=== PATIENT | female | born 1980 | race Caucasian/White ===

== ENCOUNTER 2019-08-14 13:25 | Outpatient (CLI) | payer OTHER, SELFPAY ==
--- NOTE | ~2019-08-14 | MMUS_ITS ---
EXAMINATION: MM diagnostic debi BI w saira, US breast LT limited HISTORY: Left breast lump TECHNIQUE: ML, MLO and craniocaudal 3-D tomosynthesis images of both breasts were performed and [facility] were generated. CAD analysis was submitted and interpreted. High resolution upper out er quadrant left breast ultrasound was performed. COMPARISON: 05/22/2018 bilateral diagnostic digital mammogram and limited left breast ultrasound 02/10/2016 bilateral diagnostic digital mammogram and complete bilateral breast ultrasound BREAST PARENCHYMAL COMPOSITION: There are scattered areas of fibroglandular density. FINDINGS: MAMMOGRAPHIC FINDINGS: Again noted is a mixed soft tissue and fatty mass in the upper outer quadrant of the left breast cristóbal uring up to approximately 5 cm dimension. Targeted upper outer quadrant left breast ultrasound examin ation was performed. Otherwise no suspicious mass, architectural distortion, malignant calcification, skin thickening or r etraction of either breast is evident. ULTRASOUND: At 2:00 5 cm from the nipple there is a parallel circumscribed mixed soft tissue and fatty mass of th e left breast measuring approximately 1.3 x 4.5 x 4.6 cm dimension, without suspicious shadowing or i nternal vascularity. This is most consistent with a benign hamartoma, relatively stable. IMPRESSION: 1. 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 No mammographic evidence of malignancy 3. Routine annual mammographic screening is recommended BI-RADS Category 2: Benign finding(s). Reviewed, dictated and finalized at location A. IMPRESSION: 1. Relatively stable benign probable hamartoma of the upper outer quadrant of t he left breast 2. No mammographic evidence of malignancy 3. Routine annual mammographic screening is recommended BI-RADS Category 2: Benign finding(s).
== END 2019-08-14 13:26 | disposition home or self-care (01) ==
LOC: ANHIMG 13:27
PROVIDERS: PCP Internal Medicine; Visit Provider Obstetrics & Gynecology
DX: N60.02 Solitary cyst of left breast (principal)
CPT/HCPCS: 76642; 77062; 77066; G0279

== ENCOUNTER 2020-09-19 10:04 | Outpatient (CLI) | payer OTHER, SELFPAY ==
--- NOTE | ~2020-09-19 | MMUS_ITS ---
EXAMINATION: MM diagnostic debi BI w saira, US breast LT limited HISTORY: Left breast pain with clear/yellowish discharge. TECHNIQUE: Additional 3-D tomosynthesis images of the breasts were performed and synthetic 2-D images were generated. CAD analysis was submitted and interpreted. High resolution Limited left breast ultr asound was performed. COMPARISON: Comparison to multiple prior studies sequentially, with oldest reviewed study dated 11/2015. BREAST PARENCHYMAL COMPOSITION: The breasts are heterogenously dense, which may obscure small masses. FINDINGS: MAMMOGRAPHIC FINDINGS: The breasts are stable. No new masses, calcifications or architectural distortion in either breast to suggest malignancy. ULTRASOUND: Limited left breast ultrasound: Normal heterogeneous echotexture without focal solid or cystic mass. There is a benign appearing mass, consistent with hamartoma, in the left breast which is stable by ma mmography, located at 12-1:00 position. IMPRESSION: 1. No evidence for malignancy in either breast. 2. Routine yearly screening mammogram and regular clinical breast examination are recommended. BI-RADS Category 2: Benign finding(s). Reviewed, dictated and finalized at location A. IMPRESSION: 1. No evidence for malignancy in either breast. 2. Routine yearly screening mammogram and regular clinical breast examination a re recommended. BI-RADS Category 2: Benign finding(s).
== END 2020-09-19 10:05 | disposition home or self-care (01) ==
PROVIDERS: PCP Internal Medicine; Visit Provider Obstetrics & Gynecology
DX: N64.4 Mastodynia (principal)
CPT/HCPCS: 76642; 77062; 77066; G0279

== ENCOUNTER 2023-11-22 15:30 | Outpatient (CLI) | payer BC, SELFPAY ==
--- NOTE | ~2023-11-22 | XR_ITS ---
XR foot RT min 3V DATE: 11/22/2023 15:59 INDICATION: Right foot pain TECHNIQUE: 4 views COMPARISON: None FINDINGS: There is hallux valgus and bunion deformity. There is mild osteoarthritis of the first metatarsophalangeal joint. No fracture, dislocation, periosteal reaction or bone destruction, erosive change or other significan t bony abnormality. IMPRESSION: Hallux valgus and bunion deformity Mild osteoarthritis of the first metatarsophalangeal joint Reviewed, dictated and finalized at location A.
== END 2023-11-22 15:31 | disposition home or self-care (01) ==
LOC: MICIMG 15:33
PROVIDERS: PCP Internal Medicine; Visit Provider Internal Medicine
DX: M19.071 Primary osteoarthritis, right ankle and foot (principal); M20.11 Hallux valgus (acquired), right foot
CPT/HCPCS: 73630

== ENCOUNTER 2024-09-23 10:32 | Outpatient (CLI) | payer BC, SELFPAY ==
--- NOTE | ~2024-09-23 | MMUS_ITS ---
EXAMINATION: MM diagnostic debi BI w saira, US breast LT limited INDICATION: 44-year old female; evaluation of a palpable left breast lump and annual follow-up right mammogram in COMPARISON: 09/19/2020 through 02/10/2016 TECHNIQUE: Digital breast tomosynthesis MLO and cc views of both breasts and, True lateral and spot c ompression CC and MLO views of the LEFT breast were obtained with computer-aided detection to assist in interpretation of the study. A radiopaque skin marker was placed over the area of left breast palp able lump. Targeted left breast ultrasound was completed. MAMMOGRAM FINDINGS: The breasts are heterogeneously dense, which may obscure small masses. There are no new suspicious masses, calcifications, architectural distortion or any other abnormality in either breast. Heterogeneous mass that contains soft tissue and fat densities with circumscribed margins persists in the superior lateral left breast correlates to the radiopaque skin marker. No other dominant mass, architectural distortion, or suspicious microcalcifications identified in eit her breast. There are several benign-appearing lymph nodes in both axillae containing high density material. LEFT BREAST ULTRASOUND FINDINGS: Targeted evaluation of the palpable lump identified by the patient was completed. There is a 4.9 cm h eterogeneous hypoechoic mass that has mixture of hyperechoic and hypoechoic areas at 3:00 location 8 cm from the nipple in the LEFT breast that correlates to the area of Palpable area identified by the patient. This mass has not significantly changed dating back to the left breast ultrasound study of 08/14/2019. IMPRESSION: 1. Left breast heterogeneous mass containing fat has been previously evaluated dating back to ultraso und study of the left breast completed on 08/14/2019 with impression that these lesions represent hama rtoma. It has not significantly changed in the interval. 2. No mammographic evidence of malignancy within the right breast. 3. Bilateral axillary lymph nodes containing high density material that originated from tattoo ink. T he patient has a large tattoo on the top part of her breasts. RECOMMENDATION: 1. Clinical management of the palpable area of concern. Given the large size of the palpable lump, murray rgical consultation is advised for additional recommendations. 2. Annual screening mammography due in 12 months BI-RADS 2, BENIGN Reviewed, dictated and finalized at location B. IMPRESSION: 1. Left breast heterogeneous mass containing fat has been previously evaluated dating back to ultrasound study of the left breast completed on 08/14/2019 with impression that these lesions represent hamartoma. It has not significantly adolfo nged in the interval. 2. No mammographic evidence of malignancy within the right breast. 3. Bilateral axillary lymph nodes containing high density material that origina alok from tattoo ink. The patient has a large tattoo on the top part of her alf sts. RECOMMENDATION: 1. Clinical management of the palpable area of concern. Given the large size of the palpable lump, surgical consultation is advised for additional recommendat ions. 2. Annual screening mammography due in 12 months BI-RADS 2, BENIGN
== END 2024-09-23 10:33 | disposition home or self-care (01) ==
LOC: MICIMG 10:33
PROVIDERS: PCP Obstetrics & Gynecology; Visit Provider Obstetrics & Gynecology
DX: R92.8 Other abnormal and inconclusive findings on diagnostic imaging of breast (principal); Z87.898 Personal history of other specified conditions
CPT/HCPCS: 76642; 77062; 77066; G0279

== ENCOUNTER 2024-12-22 00:22 | Day surgery (SDC) | payer BC, SELFPAY ==
--- NOTE | 2024-12-11 13:00 | SUR.PREOP ---
Addendum entered by Alvin Croft RN 12/11/24 13:23: Please let the javascript front end developer know if you need to urinate. We do need a specimen before procedure. Original Note: [facility] has started construction of its new state of the art ER which will open Spring 2026. With this, we anticipate parking may be a challenge for some our surgical patients and families. Parking spaces are limited but are available for all Surgical, obstetrics, and ER patients sharing this lot. If you arrive and find you are having a hard time finding a parking space, please note that we understand the challenges, please drive around the hospital and park near Hospital Entrance 1. When you enter this entrance, you can ask a volunteer to direct or take you back to the surgical waiting area to check in. We appreciate everyone?s understanding of these expected challenges while we build for your future. Report to the Outpatient Waiting Room, entrance under the green pavilion located off [address], at time __7am__ on date _12/22/24 . Planned Procedure Time: _9am___.? Time changes happen often and if your time is changed the preop area will call you the afternoon before. - You and your visitor will be asked to self-screen and do not enter if you have any COVID symptoms. Please call surgeon if you need to reschedule. - A mask is optional within the hospital at this time. Patients may have clear liquids (water, carbonated beverages, clear teas, apple juice) until 3 hours prior to surgery with a maximum of 20 ounces. - No food from midnight until time of surgery and no smoking, or chewing tobacco (or any form of nicotine). No chewing gum, candy or mints. Take only the following medications with a SIP of water on the morning of surgery: None__ DO NOT STOP ANY OF YOUR OTHER PRESCRIPTION MEDICATIONS PRIOR TO SURGERY EXCEPT THE FOLLOWING Hold all vitamins and supplements for 3 days per anesthesiologist. Medications to discontinue per physician ____None Date to take last dose___N/a Please no make-up, nail belgian, hairspray, perfume, deodorant, or body powder the day of surgery.? No jewelry (including any body piercings) or valuables the day of surgery, leave them at home.? Please take a shower or bath the night before, or the morning of, surgery with an antibacterial soap.? Wear comfortable, loose fitting clothing.? Children are encouraged to wear pajamas. - Jewelry must be removed prior to entering the operating room.? Rings and piercings that are not removed may be cut off. - The hospital will not accept responsibility for valuables.? - Please leave all valuables, including medications, at home the day of surgery. If you are going home after surgery, a licensed cdl truck driver must drive you home.? - NO public transportation without another adult if you receive anesthesia. - We recommend that an adult stay with you for 24 hours following discharge. - We also recommend that you do not drive, make important decision, drink alcoholic beverages, or take any drugs that were not prescribed by your health care provider for at least 24 hours after your discharge time. Follow any additional instructions given to you from your surgeon. Telephone instructions given to __Shannon and asked if any additional questions and then verbalized understanding. Patient advised to call surgeon office or pre surgery nurse liaison [phone] if any additional questions.
[2024-12-11 13:12] VITALS: BMI 38.5
[2024-12-22] VITALS (9 sets, daily range): BP systolic 100–132; BP diastolic 54–85; PULSE 54–88; RESP 12–16; TEMP 36.6–36.9; O2SAT 96–100; BMI 38.4
--- NOTE | ~2024-12-22 | MM_ITS ---
MM_FAXITRON_MG 12/22/2024 13:47 Indication: Surgical excision of left breast mass Procedure: Single post biopsy specimen radiograph Comparison: 09/23/2024 Findings: Biopsy specimen demonstrates a heterogeneous soft tissue with possible underlying masses and fat. Impression: 1: Status post recent surgical biopsy with specimen containing possible ill- defined masses and fat. Please refer to surgical report for details. Reviewed, dictated and finalized at location O. Impression: 1: Status post recent surgical biopsy with specimen containing possible ill-def ined masses and fat. Please refer to surgical report for details.
--- OUTSIDE RECORDS SUMMARY | 2024-12-22 00:25 | XMS_ITS | Encounter Summary ---
Author Organization [facility] Address [address] [place] [address] Care Team Providers Care Sample Puller Name Role Phone Dean Herring MD Primary Care Provider [phone] Encounter Details Date Type Department Care Team (Late st Contact Info) Description 01/05/2005 Outpatient Historical [facility] Maternal and Ground Floor [address] [place] [address] [place] [address] Javy Bettencourt MD NO ADDRESS ON FILE Social History Tobacco Use Types Packs/Day Years Used Date Smoking Tobacco: Never Assessed Comments Unknown Sex and Gender Information Value Date Recorded Sex Assigned at Not on file Legal Sex Female 4:15 AM CAREER AGENT Gender Identity Not on file Sexual Orientation Not on file documented as of this encounter Plan of Treatment Not on file documented as of this encounter Visit Diagnoses Not on filedocumented in this encounter Care Teams Sample Puller Relationship Specialty Start Date End Date Dean Herring MD [address] [place] [phone] PCP - General 05/13/02 documented as of this encounter
--- OUTSIDE RECORDS SUMMARY | 2024-12-22 00:25 | XMS_ITS | Encounter Summary ---
Author Organization [facility] Address [address] [place] [address] Care Team Providers Care Design Engineering Specialist Name Role Phone Dean Herring MD Primary Care Provider [phone] Encounter Details Date Type Department Care Team (Latest Contact Info) Description 01/22/2005 Inpatient Historical HIS PATIENT IN A BED Marissa Segura MD [address] [facility] [address] [place] [address] ABNL HEART RATE/RHYTHM,DELIV (Primary Dx) Social History Tobacco Use Types Packs/Day Years Used Date Smoking Tobacco: Never Assessed Comments Unknown Sex and Gender Information Value Date Recorded Sex Assigned at Not on file Legal Sex Female 4:15 AM PET ADOPTION COUNSELOR Gender Identity Not on file Sexual Orientation Not on file documented as of this encounter Plan of Treatment Not on file documented as of this encounter Procedures Procedure Name Priority Date/Time Associated Diagnosis Comments CBC WITH DIFFERENTIAL Routine 01/22/2005 10:30 AM PET ADOPTION COUNSELOR CBC WITH DIFFERENTIAL Routine 01/22/2005 10:30 AM PET ADOPTION COUNSELOR documented in this encounter Results * (ABNORMAL) CBC WITH DIFFERENTIAL (01/22/2005 10:30 AM PET ADOPTION COUNSELOR) NEUTROPHILS 74(H) 45 - 70 % INTERFAC E SYSTEM LYMPHOCYTES 21 16 - 45 % INTERFAC E SYSTEM MONOCYTES 6 3 - 13 % INTERFACE SYSTEM EOSINOPHILS 0 0 - 7 % INTERFAC E SYSTEM BASOPHILS 0 0 - 2 % INTERFACE SYSTEM NEUTROPHIL ABSOLUTE 6.88 1.90 - 7.00 K/uL INTERFACE SYSTEM LYMPHOCYTE ABSOLUTE 1.92 0.70 - 4.50 K/uL INTERFACE SYSTEM MONOCYTE ABSOLUTE 0.52 0.10 - 1.30 K/uL INTERFACE SYSTEM EOSINOPHIL ABSOLUTE 0.03 0.00 - 0.70 K/uL INTERFACE SYSTEM BASOPHILS ABSOLUTE 0.02 0.00 - 0.20 K/uL INTERFACE SYSTEM 01/22/2005 10:3 0 AM PET ADOPTION COUNSELOR Marissa Segura MD HEMATOLOGY ORDERABLES Final Result Performing Organization Address City/State/[facility] Co de Phone Number INTERFACE SYSTEM Refer to clinic/hospital department * (ABNORMAL) CBC WITH DIFFERENTIAL (01/22/2005 10:30 AM PET ADOPTION COUNSELOR) WBC 9.4 4.0 - 9.8 K/uL INTERFACE SYSTEM RBC 4.29 3.90 - 4.90 M/uL INTERFACE SYSTEM HEMOGLOBIN 12.7 11.8 - 14.8 g/dL INTERFACE SYSTEM HEMATOCRIT 37.2 35.5 - 44.0 % INTERFACE SYSTEM MCV 86.7 82.0 - 99.0 fL INTERFACE SYSTEM MCH 29.6 27.2 - 32.6 pg INTERFACE SYSTEM MCHC 34.1 31.5 - 35.5 % INTERFACE SYSTEM RDW 13.9 11.5 - 14.5 % INTERFACE SYSTEM RDW-STDEV 43.5 37.1 - 48.7 fL INTERFACE SYSTEM PLATELETS 132(L) 140 - 350 K/uL INTERFACE SYSTEM Comment:WBC and Platelets ve rified by smear review. MPV 13.7(H) 9.3 - 12.4 fL INTERFACE SYSTEM 01/22/2005 10:3 0 AM PET ADOPTION COUNSELOR Marissa Segura MD HEMATOLOGY ORDERABLES Final Result Performing Organization Address City/[facility] Co de Phone Number INTERFACE SYSTEM Refer to clinic/hospital department documented in this encounter Visit Diagnoses Diagnosis Abnormality in heart rate/rhythm, delivered, with or without mention of antepartum condition- Primary documented in this encounter Care Teams Design Engineering Specialist Relationship Specialty Start Date End Date Dean Herring MD [address] [place] [phone] PCP - General 05/13/02 documented as of this encounter
--- OUTSIDE RECORDS SUMMARY | 2024-12-22 00:25 | XMS_ITS | Encounter Summary ---
Author Organization [facility] Address [address] [place] [address] Care Team Providers Care Production Supervisor Trainee Name Role Phone Dean Herring MD Primary Care Provider [phone] Encounter Details Date Type Department Care Team (Latest Contact Info) Description 11/17/2004 Outpatient Historical HIS PATIENT IN A BED Marissa Segura MD [address] [facility] [address] [place] [address] PREG COMPL NEC-ANTEPART (Primary Dx) Social History Tobacco Use Types Packs/Day Years Used Date Smoking Tobacco: Never Assessed Comments Unknown Sex and Gender Information Value Date Recorded Sex Assigned at Not on file Legal Sex Female 4:15 AM LOADING UNIT OPERATOR SEATING Gender Identity Not on file Sexual Orientation Not on file documented as of this encounter Plan of Treatment Not on file documented as of this encounter Procedures Procedure Name Priority Date/Time Associated Diagnosis Comments URINALYSIS WITH REFLEX CULTURE Routine 11/17/2004 6:10 PM CDT URINALYSIS W/REFLEX MICROSCOPIC Routine 11/17/2004 6:10 PM CDT documented in this encounter Results * (ABNORMAL) URINALYSIS (11/17/2004 6:10 PM CDT) COLOR UA Colorless INTERFACE SYSTEM CLARITY UA Slt. Cloudy(A) Clear INTERFACE SYSTEM SPECIFIC GRAVITY UA 1.005 1.001 - 1.035 INTERFACE SYSTEM PH UA 7.0 5.0 - 8.0 INTERFACE SYSTEM LEUKOCYTE ESTERASE UA Negative Negative INTERFACE SYSTEM NITRITE UA Negative Negative INTERFACE SYSTEM PROTEIN UA Negative Negative INTERFACE SYSTEM GLUCOSE UA Negative Negative INTERFACE SYSTEM KETONES UA Negative Negative INTERFACE SYSTEM UROBILINOGEN UA <1 <1 mg/dL INTE RFACE SYSTEM BILIRUBIN UA Negative Negative INTERFA CE SYSTEM BLOOD UA Negative Negative INTERFACE SYSTEM BACTERIA UA 1+(A) None Seen /HPF INTERFACE SYSTEM EPITHELIAL CELLS, URINE 0-2 /HPF INTERFACE SYSTEM 11/17/2004 6:10 PM CDT Marissa Segura MD URINE ORDERABLES Final Resul t Performing Organization Address [facility] Phone Number INTERFACE SYSTEM Refer to clinic/hospital department * URINALYSIS WITH REFLEX CULTURE (11/17/2004 6:10 PM CDT) URINE CULTURE ORDER Not indicated INTERFACE SYSTEM Comment: Criteria for a reflex culture include one or more of the following: Abn ormal nitrite, leukocyte esterase, WBCs or RBCs. Lack of qualifying criteria does not exclude the possiblity of a urinary tract infection. Dilute urine, drug interference, etc. may decrease the sensitivity of the criteria analytes. 11/17/2004 6:10 PM CDT us Marissa Segura MD URINE ORDERABLES Final Resul t Performing Organization Address [facility] INTERFACE SYSTEM Refer to clinic/hospital department documented in this encounter Visit Diagnoses Diagnosis Other specified complication, antepartum(646.83)- Primary Other specified complication, antepartum documented in this encounter Care Teams Production Supervisor Trainee Relationship Specialty Start Date End Date Dean Herring MD [address] [place] [phone] PCP - General 05/13/02 documented as of this encounter
--- OUTSIDE RECORDS SUMMARY | 2024-12-22 00:25 | XMS_ITS | Encounter Summary ---
Author Organization [facility] Address [address] [place] [address] Care Team Providers Care Chief Fundraising Officer Name Role Phone Dean Herring MD Primary Care Provider [phone] Encounter Details Date Type Department Care Team (Late st Contact Info) Description 10/03/2003 Outpatient Historical [facility] Marissa Segura MD [address] [facility] [address] [place] [address] Social History Tobacco Use Types Packs/Day Years Used Date Smoking Tobacco: Never Assessed Comments Unknown Sex and Gender Information Value Date Recorded Sex Assigned at Not on file Legal Sex Female 4:15 AM LOW VOLTAGE TECHNICIAN Gender Identity Not on file Sexual Orientation Not on file documented as of this encounter Plan of Treatment Not on file documented as of this encounter Visit Diagnoses Not on filedocumented in this encounter Care Teams Chief Fundraising Officer Relationship Specialty [place] [address] [place] [phone] PCP - General 05/13/02 documented as of this encounter
--- OUTSIDE RECORDS SUMMARY | 2024-12-22 00:25 | XMS_ITS | Encounter Summary ---
Author Organization [facility] Address [address] [place] [address] Care Team Providers Care Pole Incisor Operator Name Role Phone Dean Herring MD Primary Care Provider [phone] Encounter Details Date Type Department Care Team (Latest Contact Info) Description 01/05/2005 Outpatient Historical [facility] Marissa Segura MD [address] [facility] [address] [place] [address] SCREENING NEC (Primary Dx) Social History Tobacco Use Types Packs/Day Years Used Date Smoking Tobacco: Never Assessed Comments Unknown Sex and Gender Information Value Date Recorded Sex Assigned at Not on file Legal Sex Female 4:15 AM DROSSER Gender Identity Not on file Sexual Orientation Not on file documented as of this encounter Plan of Treatment Not on file documented as of this encounter Visit Diagnoses Diagnosis Other screening- Primary Other specified screening documented in this encounter Care Teams Pole Incisor Operator Relationship Specialty [place] [address] [place] [phone] PCP - General 05/13/02 documented as of this encounter
--- OUTSIDE RECORDS SUMMARY | 2024-12-22 00:25 | XMS_ITS | Encounter Summary ---
Author Organization [facility] Healthcare Address [address] [place] [address] Care Team Providers Care Nursing Admin Name Role Phone Dean Herring MD Primary Care Provider [phone] Encounter Details Date Type Department Care Team (Late st Contact Info) Description 08/03/2024 [facility] Post Discharge Follow up phone call [address] [address] Shakira Robbins Social History Tobacco Use Types Packs/Day Years Used Date Smoking Tobacco: Never AUDIT-C Answer Date Recorded Q1: How often do you have a drink containing alc ohol? Never 09/26/2020 Average Number of Drinks Not on file 021 Frequency of Binge Drinking Not on file 09/02 Personal Safety Answer Date Recorded Have you ever been in or are you currently in a harmful physical or emotional relationship or is someone making you feel afraid or unsafe? Denies 07/20/2024 Comments Unknown Sex and Gender Information Value Date Recorded Sex Assigned at Not on file Legal Sex Female 3:15 AM DOWEL SANDER OPERATOR Gender Identity Not on file Sexual Orientation Not on file documented as of this encounter Plan of Treatment Not on file documented as of this encounter Visit Diagnoses Not on filedocumented in this encounter Care Teams Nursing Admin Relationship Specialty Start Date End Date Dean Herring MD PCP - General 09/05/16 documented as of this encounter
--- OUTSIDE RECORDS SUMMARY | 2024-12-22 00:25 | XMS_ITS | Clinical Summary ---
Author Organization [facility] Address [address] [place] [address] Care Team Providers Care Millwork Estimator Name Role Phone Dean Herring MD Primary Care Provider [phone] Allergies Active Allergy Reactions Criticality Noted Date Comments Penicillins Medications cetirizine (ZyrTEC) 5 mg tablet Take 1 tablet (5 mg total) by mouth daily Active metoprolol tartrate (LOPRESSOR) 37.5 mg tablet immediate release tablet Take 1 tablet (37.5 mg total) by mouth 2 (two) times a day 60 tablet 3 07/21/2024 6 Active hydroCHLOROthia zide (HYDRODIURIL) 25 mg tablet Take 1 tablet (25 mg total) by mouth daily 30 tablet 3 07/21/2024 6 Active nitroglycerin (NITROSTAT) 0.[address] 1 tablet (0.4 mg total) under the tongue every 5 (five) minutes as needed for chest pain 30 tablet 07/21/2024 6 Active Active Problems Problem Noted Date Diagnosed Date Intermittent palpitations 07/21/2024 Chest pain, unspecified type 07/20/2024 Discharge from left nipple 09/26/2020 Mastodynia of left breast 09/26/2020 Sprain of tibiofibular ligament of ankle 014 Overview (06/09/2016): High ankle sprain Surgical History Surgery Date Site/Laterality Comments CHOLECYSTECTOMY Cholecystectomy Medical History Medical History Date Comments Generalized headaches Depression Family History Medical History Relation Name Comments Pancreatic cancer Father's Sister Prostate cancer Maternal Grandfather Brain cancer Maternal Grandmother Breast cancer Maternal Grandmother Lung cancer Maternal Grandmother COPD Mother COPD; Heart failure Mother Congestive hea rt failure; Kidney cancer Mother's Brother Liver cancer Mother's Brother Relation Name Status Comments Father's Sister Maternal Grandfather Maternal Grandmother Mother Mother's Brother Social History Tobacco Use Types Packs/Day Years [...] on file 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 Gender Identity Not on file Sexual Orientation Not on file Obstetrics History Last Filed Vital Signs Vital Sign Reading Time Taken Comments Blood Pressure 104/65 07/21/2024 12:51 PM CDT Pulse 58 07/21/2024 12:51 PM CDT Temperature 36.8 C (98.2 F) 07/21/2024 12:51 PM CDT Respiratory Rate 18 07/21/2024 12:51 PM CDT Oxygen Saturation 98% 07/21/2024 12:51 PM CDT Inhaled Oxygen Concentration - - Weight 97.7 kg (215 lb 6.2 oz) 07/21/2024 12:08 AM CDT Height 165.1 cm (5' 5) 07/21/2024 12:01 AM CDT Body Mass Index 35.84 07/21/2024 12:01 AM CDT Plan of Treatment Health Maintenance Due Date Last Done Comments Breast Cancer Screening-Mammogram 1980 Cervical Cancer Screening 1980 Colon Cancer Screening-Colonoscopy 1980 Depression Screening 1980 Hepatitis C Screening 1980 DTaP/Tdap/Td Vaccine (1 - Tdap) 08/11/1990 Varicella Vaccines (1 of 2 - 13+ 2-dose series) 08/11/1992 Hepatitis B Screening 08/11/1997 Regular Well Visit/Exam 18-64 08/11/1997 HPV Vaccines (1 - 3-dose SCD M series) 08/11/2006 Covid-19 Vaccine (2024-2 6 season) 2024 03/21/2020, 03/02/2020 Influenza Vaccine (#1) 2024 2, 11/12/2011 Pneumococcal vaccine <65 Aged Out No longer eligible based on patient's age to complete this topic Insurance [employer] OOS [employer] Advance Directives For more information, please contact: [phone] * Full Code (Latest Code Status on File) Date Activated Date Inactivated Comments 07/21/2024 1:15 AM 07/21/2024 7:21 PM Care Teams Millwork Estimator Relationship Specialty Start Date End Date Dean Herring MD PCP - General 09/05/16
--- OUTSIDE RECORDS SUMMARY | 2024-12-22 00:25 | XMS_ITS | Encounter Summary ---
Author Organization [facility] Address 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
--- OUTSIDE RECORDS SUMMARY | 2024-12-22 00:25 | XMS_ITS | Clinical Summary ---
Author Organization [facility] Address [address] [place] [phone] Phone Care Team Providers Care Swage Tender Name Role Phone Dean Herring MD Primary Care Provider [phone] Allergies Active Allergy Reactions Criticality Noted Date Comments Penicillins Rash Low 04/13/2012 Medications calcium carbonate (TUMS) 400 mg (1,000 mg) Oral Chew Take 1,000 mg by mouth 1 time daily as needed. Active vit-iron fumarate-fa (NATALCARE) 60 mg iron-1 mg Oral tablet Take 1 Tab by mouth daily. Active HYDROcodone-drea taminophen (NORCO) 5-325 mg Oral tablet Take 1 Tab by mouth every 4 hours as needed for Pain, Moderate (For Pain Scale 4-6). 20 Tab 1 05/08/2012 Active Active Problems Problem Noted Date Diagnosed Date 3/5 05/06/2012 Decreased movement - discharged 04/13/2012 Resolved Problems Problem Noted Date Diagnosed Date Resolved Date EIL(pit), AROM @1125, GBS-,O- 05/06/2012 05/06/2012 Immunizations Immunization Administration Dates Next Due Influenza Seasonal Unspecified Formulation IM Rho (D) IMMUNE GLOBULIN 1,500 UNIT(300 MCG) INJE CTION 05/07/2012 Family History Medical History Relation Name Comments Healthy Brother Healthy Father Heart Disease Mother Breast Cancer Paternal Grandmother Relation Name Status Comments Brother Alive Father Alive Maternal Grandfather Maternal Grandmother Mother Alive Paternal Grandfather Paternal Grandmother Social History Tobacco Use Types Packs/Day Years Used Date Smoking Tobacco: Never Smokeless Tobacco: Never Alcohol Use Standard Drinks/Week Comments No 0 (1 standard drink = 0.6 oz pur e alcohol) Comments Unknown Sex and Gender Information Value Date Recorded Sex Assigned at Not on file 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 Gender Identity Not on file Sexual Orientation Not on file Occupation Industry Job Start Date Job End Date Not on file Not on file Not on file Not on file Last Filed Vital Signs Vital Sign Reading Time Taken Comments Blood Pressure 120/70 05/08/2012 8:45 AM MEN'S SWIM COACH Pulse 88 05/08/2012 8:45 AM MEN'S SWIM COACH Temperature 36.6 C (97.8 F) 05/08/2012 8:45 AM MEN'S SWIM COACH Respiratory Rate 20 05/08/2012 8:45 AM MEN'S SWIM COACH Oxygen Saturation 100% 05/06/2012 4:03 PM MEN'S SWIM COACH Inhaled Oxygen Concentration - - Weight 99.8 kg (220 lb) 05/06/2012 10:50 AM MEN'S SWIM COACH Height 162.6 cm (5' 4) 05/06/2012 10:50 AM MEN'S SWIM COACH Body Mass Index 37.76 05/06/2012 10:50 AM MEN'S SWIM COACH Plan of Treatment Health Maintenance Due Date Last Done Comments DTAP/TDAP/TD VACCINES (1 - Tdap) 08/11/1998 HEPATITIS B VACCINES (1 of 3 - 19+ 3-dose series) 08/02 HPV/Cotest (21-29) 08/11/2000 HPV VACCINES (1 - 3-dose SCDM series) 08/11/2006 CERVICAL CANCER SCREENING 08/11/2009 HPV/Cotest (30-65) 08/11/2009 PAP SMEAR 08/11/2009 BREAST CANCER SCREENING 2019 COLORECTAL SCREENING 08/11/2024 Colorectal Cancer Screening 08/11/2024 FIT-DNA Q 3 years 08/11/2024 FIT/FOBT Q 1 year 08/11/2024 Flex Sig/CT Colonography Q 5 years 08/11/2024 INFLUENZA VACCINE (#1) 2024 11/12/2011 Insurance [employer] PPO [id number] Advance Directives For more information, please contact: [phone] * Full Code (Latest Code Status on File) Date Activated Date Inactivated Comments 05/06/2012 9:20 PM 05/08/2012 12:50 PM * Full Code Date Activated Date Inactivated Comments 05/06/2012 10:46 AM 05/06/2012 9:20 PM * Full Code Date Activated Date Inactivated Comments 04/13/2012 4:34 PM 04/13/2012 7:02 PM Care Teams Swage Tender Relationship Specialty Start Date End Date Dean Herring MD [address] [place] [phone] PCP - General 05/13/02
--- OUTSIDE RECORDS SUMMARY | 2024-12-22 00:26 | XMS_ITS | Encounter Summary ---
Author Organization [facility] Address 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
--- OUTSIDE RECORDS SUMMARY | 2024-12-22 00:26 | XMS_ITS | Encounter Summary ---
Author Organization [facility] Address [address] [place] [address] Care Team Providers Care Nuclear Weapons Custodian Name Role Phone Dean Herring MD Primary Care Provider [phone] Encounter Details Date Type Department Care Team (Latest Contact Info) Description 09/01/2003 Outpatient Historical [facility] Marissa Segura MD [address] [facility] [address] [place] [address] ABNL FINDINGS ON SCREEN (Primary Dx) Social History Tobacco Use Types Packs/Day Years Used Date Smoking Tobacco: Never Assessed Comments Unknown Sex and Gender Information Value Date Recorded Sex Assigned at Not on file Legal Sex Female 4:15 AM FUNERAL GREETER Gender Identity Not on file Sexual Orientation Not on file documented as of this encounter Plan of Treatment Not on file documented as of this encounter Visit Diagnoses Diagnosis Abnormal findings on screening- Primary documented in this encounter Care Teams Nuclear Weapons Custodian Relationship Specialty [place] [address] [place] [phone] PCP - General 05/13/02 documented as of this encounter
--- OUTSIDE RECORDS SUMMARY | 2024-12-22 00:26 | XMS_ITS | Encounter Summary ---
Author Organization [facility] Address [address] [place] [address] Care Team Providers Care Waste Reclaimer Name Role Phone Dean Herring MD Primary Care Provider [phone] Encounter Details Date Type Department Care Team (Latest Contact Info) Description 01/27/2002 Outpatient Historical HIS [facility] Fernández, Ronak Holland MD NO ADDRESS ON FILE OVARIAN DYSFUNCTION NOS (Primary Dx) Social History Tobacco Use Types Packs/Day Years Used Date Smoking Tobacco: Never Assessed Comments Unknown Sex and Gender Information Value Date Recorded Sex Assigned at Not on file Legal Sex Female 4:15 AM MANAGED CARE NURSE Gender Identity Not on file Sexual Orientation Not on file documented as of this encounter Plan of Treatment Not on file documented as of this encounter Visit Diagnoses Diagnosis Unspecified ovarian dysfunction- Primary documented in this encounter Care Teams Waste Reclaimer Relationship Specialty Start Date End Date Dena Herring MD [address] [place] [phone] PCP - General 05/13/02 documented as of this encounter
--- OUTSIDE RECORDS SUMMARY | 2024-12-22 00:26 | XMS_ITS | Encounter Summary ---
Author Organization [facility] Address 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
--- OUTSIDE RECORDS SUMMARY | 2024-12-22 00:26 | XMS_ITS | Encounter Summary ---
Author Organization [facility] Address [address] [place] [address] Care Team Providers Care Drum Stenciler Name Role Phone Dean Herring MD Primary Care Provider [phone] Encounter Details Date Type Department Care Team (Latest Contact Info) Description 05/13/2002 Outpatient Historical HIS 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
--- OUTSIDE RECORDS SUMMARY | 2024-12-22 00:26 | XMS_ITS | Encounter Summary ---
Author Organization [facility] Address 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
[2024-12-22] MEDS: LACTATED RINGERS 1,000 ML 30 ML IV CONT ×2 (07:35→09:37)
[2024-12-22] MEDS: ACETAMINOPHEN 500 MG TABLET 1000 MG PO (07:38)
--- NOTE | 2024-12-22 07:49 | P.PNAN_ITS ---
Anes - Initial Pre Proc Eval Procedure: Operation Date: 12/22/24 09:00 Proposed Procedures p Excisional Biopsy Left Breast Mass with Possible Adjacent Tissue Transfer - Leora Fletcher MD Date/Time: 12/22/24 07:49 Surgeon: Leora Fletcher MD Pre Op Diagnosis: Left Breast Mass Patient Data Age: 44 Gender: F Height: 1.63 m Weight: 101.8 kg Allergies Allergy/AdvReac Type Severity Reaction Status Date / Time Penicillins Allergy Unknown RASH Verified 12/11/24 13:02 Home Medications ?Medication ?Instructions ?Recorded ?Confirmed ?Type No Home Medications 12/14/24 12/14/24 H istory Patient hx anesthesia problems: none Family hx anesthesia problems: none Results Review: All pre-operative results and documents have been reviewed as part of the pre- operative evaluation. [facility] Past Medical History Medical History Left breast mass Irregular periods ASCUS with positive high risk HPV cervical Chlamydia Encounter for insertion of mirena IUD Encounter for screening examination for sexually transmitted disease Screening mammogram, encounter for Encounter for IUD insertion 02/24/16 Mirena insertion Neurofibroma Gall stones GERD (gastroesophageal reflux disease) Bronchitis Anxiety Abnormal Pap smear of cervix 2008 abnormal cells Surgical History Surgical History History of colposcopy with cervical biopsy (~2007) benign History of cholecystectomy (~2006) Family History Family History Mother Heart disease Diabetes mellitus Cerebrovascular accident Hypertension Grandparent Breast cancer maternal grandmother Malignant neoplasm of prostate maternal grandfather Malignant neoplasm of brain maternal grandmother Malignant neoplasm of lung maternal grandmother Father Daughter Heart disease Social History Social History Smoking status: Never smoker Alcohol intake: current Substance use: never Substance use type: does not use Do You Feel Safe in your Home?: Yes Lack of Transportation: No Lack of Food: Never True Current Housing: I Have Housing Concerned About Future Housing: No Difficulty Paying Gas/Electric Bills: Decline to Answer Difficulty Paying for Meds: No Currently Unemployed: No Education: High School Diploma/GED Difficulty w/ Childcare or Family Care: No Living arrangements: with family Additional living arrangements comments: Occupation/Education: occupation 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 Gender identity (if verbalized by the patient): Female Sexual Orientation (if Verbalized by the Patient): Straight or Heterosexual Anes - Eval Final PreProcedure Day of Procedure 12/22/24 07:49 Patient weight: obese Heart: regular rate and rhythm Lungs: clear to auscultation Airway: Mallampati scale class II Neurological: alert and oriented Last oral intake: >/= 8 hours ASA classification: III Emergent: no Anesthetic plan: proceed Anesthesia type and monitoring: general LMA and standard monitoring Results Review: All pre-operative results and documents have been reviewed as part of the pre- operative evaluation. Informed Consent: The patient's anesthetic plan and its attendant risks and benefits were discussed with the patient/family/POA. Questions were solicited and answers provided to the satisfaction of the patient/family/POA.
[2024-12-22 08:04] LABS: BEDSIDEPREGUCG Negative (Negative)
--- NOTE | 2024-12-22 08:15 | WPDHPUPDATE1 ---
History and Physical Update Update Date/Time: 12/22/24 08:15 - Excisional biopsy of left breast mass, possible adjacent tissue transfer History and Physical has been reviewed, including an updated exam of the patient. There are NO changes in the patient's condition. Risks, benefits, and alternatives have been discussed and questions answered. Patient agrees to proceed with procedure.
[2024-12-22] MEDS: ceFAZolin 2 GM in SODIUM CHLORIDE 0.9% IV 50 ML 100 ML IVPB (08:39)
--- NOTE | 2024-12-22 09:21 | S_PTH ---
PATIENT: Kassandra Greenberg LOC: [facility] U#:[id number] AGE/SX: 44/F ROOM: RE12/22/[address]: Leora Fletcher MD : 1980 BED: DIS: 12/22/2024 SPEC #: [id number] RECD: 12/22/24 09:25 STATUS: ANSELMO REQ #: [id number] PERICO: 12/22/24 09:[address]: Leora Fletcher DEPT: [facility] Surgical RECD BY: Lucas Hughes ENTERED: 12/22/24 09:26 SP TYPE: Surgical OTHR DR: Dean Herring, Tissues: A - Breast Lumpectomy Procedures: Hematoxylin and Eosin Stain Gross and Microscopic Level 5
[2024-12-22] MEDS: LIDOCAINE 1% LOCAL INJ 10 ML VIAL 5 ML INFILTRATE (09:24)
[2024-12-22] MEDS: BUPIVACAINE/EPINEPHRINE 0.5% 50 ML VIAL INFILTRATE (09:25)
--- NOTE | 2024-12-22 09:31 | W.PM.PROC2 ---
Procedure Note - Detailed Date of Procedure 12/22/24 Pre-op Diagnosis Symptomatic Left Breast Mass Post-op Diagnosis Same Procedure Performed Excisional biopsy of left breast mass (6cm x 4.5cm) Surgeon Leora Fletcher MD Anesthesia MAC Description of Procedure Patient was identified in the preoperative holding area and brought to the operating room suite. She was laid supine in the OR table sequential compression devices were applied. The left chest area was prepped and draped in the sterile fashion. A lateral inframammary fold incision was made with a 15 blade and dissection was carried down into the breast tissue cephalad towards the mass superiorly. The mass was identified and was completely excised EN bloc and sent to pathology as a permanent specimen. The mass measured 6 cm x 4.5 cm. The cavity was irrigated with saline hemostasis was assured. A couple 2 0 Vicryl intraparenchymal sutures were placed to approximate the cavity to decrease the risk of seroma. The deep dermal layer was then closed with the interrupted 3-0 Vicryl followed by 4-0 Monocryl in a subcuticular fashion for the skin. Dermabond was applied followed by surgical bra. Patient was awoken from anesthesia and taken to the recovery area in stable condition. All needles, instruments, and sponge counts were correct as reported by the operating room staff. Patient tolerated the procedure well with no immediate complications. Estimated Blood Loss 5 Pathology Yes Complications No immediate complications Condition Stable Disposition PACU [facility] Billing Surgery - Charge Forward: Surgery Billing (CPT 39924)
[2024-12-22] MEDS: fentaNYL CITRATE INJ (*CRX) 100 MCG/2 ML VIAL 25 MCG IV PUSH (09:57)
[2024-12-22] MEDS: ONDANSETRON INJ 4 MG/2 ML VIAL IV PUSH (09:59)
[2024-12-22] MEDS: oxyCODONE HCL (*CRX) 5 MG TAB IR PO (11:00)
== END 2024-12-22 11:27 | disposition home or self-care (01) ==
PROVIDERS: PCP Internal Medicine; Visit Provider Surgery
PROC: (CPT 19120; principal; 2024-12-22 09:00)
DX: D24.2 Benign neoplasm of left breast (principal); K21.9 Gastro-esophageal reflux disease without esophagitis; F41.9 Anxiety disorder, unspecified; E66.9 Obesity, unspecified; Z68.38 Body mass index [BMI] 38.0-38.9, adult; Z98.890 Other specified postprocedural states; Z90.49 Acquired absence of other specified parts of digestive tract; Z87.19 Personal history of other diseases of the digestive system; Z80.3 Family history of malignant neoplasm of breast; Z80.42 Family history of malignant neoplasm of prostate; Z80.1 Family history of malignant neoplasm of trachea, bronchus and lung; Z80.8 Family history of malignant neoplasm of other organs or systems; Z82.49 Family history of ischemic heart disease and other diseases of the circulatory system
CPT/HCPCS: 19120; 76098; 88307; J0690; A9270; J1100; J2003; J2250; J2405; J2704; J3010; J7120